=== PATIENT | female | born 1980 | race African-American/Black ===

== ENCOUNTER 2018-01-17 06:55 | Day surgery (SDC) | payer SELFPAY ==
[~2018-01-17] VITALS: Ht 172.7 cm; Wt 75.7 kg
[2018-01-17] MEDS ORDERED: LACTATED RINGERS 1,000 ML IV SCH (07:30)
[2018-01-17 08:10] LABS: BASOPHILS % 0.6 % (0.0-2.0); EOSINOPHILS % 1.7 % (0.0-5.0); HEMATOCRIT. 38.7 % (36.0-48.0); HEMOGLOBIN. 12.8 g/dL (12.0-16.0); LYMPHOCYTES % 29.6 % (20.0-50.0); MEAN CORPUSCULAR HEMOGLOBIN 30.3 pg (28.0-32.0); MEAN CORPUSCULAR VOLUME 91.6 fL (81.0-99.0); MEAN PLATELET VOLUME 7.9 fl (7.4-10.4); MONOCYTES % 6.5 % (2.0-8.0); NEUTROPHILS % 61.6 % (40.0-76.0); PLATELET 208 x1000/uL (130-400); RED BLOOD CELL COUNT 4.22 mill/uL (4.2-5.4); RED CELL DISTRIBUTION WIDTH 14.9 % (11.6-14.6)
[2018-01-17 08:12] LABS: CLARITY URINE CLEAR (CLEAR); COLOR URINE YELLOW (YELLOW); KETONES URINE NEGATIVE (NEGATIVE); LEUKOCYTE ESTERASE URINE NEGATIVE (NEGATIVE); NITRITE URINE NEGATIVE (NEGATIVE); OCCULT BLOOD URINE NEGATIVE (NEGATIVE); PH URINE 5.5 (4.5-8.0); PROTEIN URINE NEGATIVE (NEGATIVE); SPECIFIC GRAVITY URINE 1.015 (1.005-1.030); UROBILINOGEN URINE 0.2 E.U./dL (0.2-1.0)
[2018-01-17] MEDS ORDERED: IOPAMIDOL 61% 300/15 ML VIAL IT ONE (08:12)
[2018-01-17 08:15] LABS: CHLORIDE 107 mEq/L (98-107)
[2018-01-17 08:20] LABS: UCG SCREEN NEGATIVE
[2018-01-17 08:30] LABS: PROTHROMBIN TIME 10.2 sec (9.1-11.1)
[2018-01-17] MEDS ORDERED: MIDAZOLAM HCL 2 MG/2 ML VIAL ONE (09:01)
[2018-01-17] MEDS ORDERED: FENTANYL CITRATE/PF 50MCG/ML 5ML VIAL ONE (09:01)
[2018-01-17] MEDS ORDERED: ONDANSETRON HCL 4MG/2ML INJ ONE (09:02)
[2018-01-17] MEDS ORDERED: LIDOCAINE HCL/PF 1% 10 MG/ML 5ML VIAL ONE (09:04)
[2018-01-17] MEDS ORDERED: PROPOFOL 200MG/20ML VIAL IV ONE (09:04)
[2018-01-17] MEDS ORDERED: DEXAMETHASONE 4MG/ML 1ML VIAL ONE (09:14)
[2018-01-17] MEDS ORDERED: KETOROLAC 30MG/ML VIAL ONE (09:14)
[2018-01-17] MEDS ORDERED: METOCLOPRAMIDE HCL 10MG/2ML VIAL ONE (09:16)
[2018-01-17] MEDS ORDERED: ROCURONIUM BROMIDE 10MG/ML VIAL 5ML IV ONE ×2 (09:23→11:26)
[2018-01-17] MEDS ORDERED: SKIN ADHESIVE 0.7 GM EA TOP ONE (11:34)
[2018-01-17] MEDS ORDERED: FENTANYL CITRATE/PF 50MCG/ML 2ML VIAL ONE (11:34)
[2018-01-17] MEDS ORDERED: NEOSTIGMINE METHYLSULFATE 1MG/ML 10 ML VIAL ONE (11:38)
[2018-01-17] MEDS ORDERED: GLYCOPYRROLATE 0.2 MG/ML 2ML VIAL ONE (11:38)
[2018-01-17] MEDS ORDERED: FENTANYL CITRATE/PF 50MCG/ML 2ML VIAL IV PRN (11:45)
[2018-01-17] MEDS ORDERED: ONDANSETRON HCL 4MG/2ML INJ IV PRN (11:45)
== END 2018-01-17 15:40 | disposition home or self-care (01) ==
LOC: OR 06:55
PROVIDERS: ATTEND Obstetrics & Gynecology Obstetrics
DX: N85.8 Other specified noninflammatory disorders of uterus (principal); N73.6 Female pelvic peritoneal adhesions (postinfective); E78.00 Pure hypercholesterolemia, unspecified; Z88.1 Allergy status to other antibiotic agents; Z88.8 Allergy status to other drugs, medicaments and biological substances; Z98.890 Other specified postprocedural states
CPT/HCPCS: 36415; 58561; 58660; 80048; 81003; 81025; 85025; 85610; 85730; 88305; G0168; J1100; J1885; J2250; J2405; J2710; J2765; J3010; J3490; J7120; J2704; Q9967